=== PATIENT | female | born 1985 | race Caucasian/White ===

== ENCOUNTER → 2020-07-23 | Outpatient (CLI) | payer BC ==
--- NOTE | 2020-07-24 09:37 | US ---
EXAM DESCRIPTION: Spleen: ULTRASOUND. CLINICAL HISTORY: 35 years Female SPLENOMEGALY, NOT ELSEWHERE CLASSIFIED COMPARISON: None Available. TECHNIQUE: Transcutaneous scanning: Brush-scale and Doppler modes. FINDINGS: Homogeneous echoes in the spleen. 10.9 cm Long axis. 6.4 x 6.5 cm. No focal lesions. Normal color Doppler. Left kidney 10.3 cm long axis. 4.6 x 5.3 cm. Normal cortical thickness and echogenicity. Estimated volume 131.5 mL. No echogenic stones or hydronephrosis. No fluid in the left upper quadrant. IMPRESSION: Sonographically normal appearance of the spleen and left kidney. Spleen not enlarged. No free fluid. Electronically signed by: Randall Mims MD 07/24/2020 9:35 AM CDT
== END ==
LOC: LAB.O 09:36
PROVIDERS: ATTEND Family Medicine
DX: R10.12 Left upper quadrant pain (principal)